=== PATIENT | male | born 1965 | race Caucasian/White ===

== ENCOUNTER 2019-07-15 16:30 | Outpatient (RCR) | payer OTHER, SELFPAY ==
--- NOTE | 2019-06-17 10:23 | HP.PTEVAL ---
Patient's Visit Information DEE RIDDLE is a 53 year old M referred to Physical Therapy by Out of Town Doctor with a diagnosis of B Knee Pain. Date of Evaluation: 06/17/19 Physical Therapist: Jaimie Fabian DPT - Visit Plan Frequency: 2x /Week Duration: 4 Weeks Plan: Bilateral TKR 05/20/19- Focus on LE functional mobility- plans to return to work at [employer] in 2 weeks. Progress as tolerated. - Subjective Findings: When he was a senior in college right knee blew out- reconstructed- and then the left was compensating. Bilateral Total Knees-05/20/19- by Dr. Michelle. Was in the hospital 2 days then sent him home- 2 story home with help as needed. Had home health for the past 4 weeks. Signed off Monday- Left 116 degrees Right 122 degrees. Pain at its worst is a 4-5/10- both knees are about the same- left feels a little more stiff and has a little more fluid. Agg: sitting for long periods of time. Best: 0/10 Eases: Tylenol. Pain is general throughout the whole knee- describes the pain as dull and achy. No radiating. Does have numbness/tingling to front of auguste. [place] the [place] 6 hours x2 days and not to bad- trying to build his endurance back. Sleep: Wakes up about 2:30- has been going from bed to reclyner. Work: [employer]- job duties include- pushing, pulling, walking, standing, lifting up to #50. Fully I proir to surgery- is currently using a cane at most times. PMHx: HTN Meds: Losartin, hydrchlorate. Tomorrow is first apt back to the MD. - Objective Stairs: With Cane: ascending w/ use AD & 1 HR, significant weight shift onto cane. Slight toe-in. Descending w/ poor eccentric control, turned side-ways to navigate steps. Without Cane: Reciprocal pattern w/ use of 1 HR, equal weight shift, descended w/ use of 1 HR & reciprocal pattern, lacked eccentric control in L LE. Gait: (no AD) slight toe-in, decreased wilma. HR: 25% lacking. TR: WFL. SLS: L - 6 seconds R - 12 seconds. ROM: Ankle WFL, Knee Flex: L 110 degrees, R 108 degrees, Knee Ext. WFL. Strength: Ankle: 5/5, Knee: extn: 4+/5, Flexion: 4/5, Hip: 4+/5 Core: fair. Flexibility:HS: moderate. Incision: No signs of infection - healing appropriately. Sensation: WNL to gross touch B - Goals Goal 1:: Pt. will be I w/ HEP & progression Goal Time Frame: 4-6 Weeks Goal 2:: Pt. will amb. >300 ft w/ normalized gait pattern no AD Goal Time Frame: 4-6 Weeks Goal 3:: Pt. will report 0/10 pain w/ ADL's Goal Time Frame: 4-6 Weeks Goal 4:: Patient will asc/desc 8 stairs recip with 1 HR and good technique. Goal Time Frame: 4-6 Weeks Goal 5:: Patient will demo 0-120 degrees in bilateral LE Goal Time Frame: 4-6 Weeks Goal 6:: Patient will demo 5/5 strength in LE Goal Time Frame: 4-6 Weeks - Rehabilitation Potential Physical Therapy Diagnosis: pt. presents w/ hypomobility, decreased knee ROM, antalgic gait, and pain which leads to pain w/ performance of ADL's. Rehabilitation Potential: Good - Anticipated Interventions Patient/Client Instruction: Educate patient on: Condition, Plan of Care For the Purpose of:: To decrease pain Therapeutic Exercise to Include: Strength training, Endurance training, Balance training, Body mechanics, Postural training, Flexibilty training, Gait and locomotor training, Passive ROM, Active ROM, Dynamic Lumbar Stabilization Cryotherapy (ice pack, ice massage): Yes Thermo therapy (hot pack): Yes Thank you for the opportunity to evaluate your patient. For Medicare and Medicare HMO plans, please review the plan of care and approve it. It will need to be FAXED BACK to us at [phone] for Medicare purposes. For Medicare only, by signing this I certify the plan of care. Please let me know if there are questions or concerns regarding this plan of care. Physician Signature: Date:
--- NOTE | 2019-07-16 15:56 | HP.PTDCSUM_ITS ---
HP - PT D/C Summary It has been my pleasure to treat DEE RIDDLE under orders from Jerrod Jim, for the diagnosis of Bilat TKR 05/20/19 for a total of 11 visit(s). Discharge Date: Please see the following information for a summary of their discharge status. - Subjective Subjective: Pt. reports he is therapy has gone well. Stood all monday night watching lemonade.uk with 0/10 pain. Still some stiffness at times. - Overall Improvement % Improvement: 90 - Objective Objective/Function: Stairs: Reciprocal w/ intermittent HR use. Gait: no deviations noted. HR: WFL. TR: WFL. SLS: B 15 seconds w/ no UE support. ROM: Ankle WFL, Knee Flex: L 110 degrees, R 108 degrees, Knee Ext. WFL. Strength: Ankle: 5/5, Knee: extn: 5/5, Flexion: 5/5, Hip: 5/5 Core: fair. Flexibility:HS: moderate. Incision: No signs of infection - healing appropriately. Sensation: WNL to gross touch B. [ End ] - Goals Goal 1:: Pt. will be I w/ HEP & progression Goal Progress: Goal Met Goal 2:: Pt. will amb. >300 ft w/ normalized gait pattern no AD Goal Progress: Goal Met Goal 3:: Pt. will report 0/10 pain w/ ADL's Goal Progress: Goal Met Goal 4:: Patient will asc/desc 8 stairs recip with 1 HR and good technique. Goal Progress: Goal Met Goal 5:: Patient will demo 0-120 degrees in bilateral LE Goal Progress: Progressing Goal 6:: Patient will demo 5/5 strength in LE Goal Progress: Goal Met - Plan Plan: 07/15/19 - Pt. D/C w/ HEP & instructed to return if questions/concerns. - D/C Information If there are questions or concerns regarding this patient's physical therapy, please feel free to call me at [phone]. Thank you for the referral of this patient. Sincerely, Jaimie Fabian DPT
== END 2019-07-15 19:00 | disposition home or self-care (01) ==
LOC: PT 16:30
PROVIDERS: Family Provider Family Medicine; PCP Family Medicine; Referring Provider Orthopaedic Surgery; Visit Provider Orthopaedic Surgery
DX: Z96.653 Presence of artificial knee joint, bilateral (principal)
CPT/HCPCS: 97014; 97032; 97110; 97161; 97162; 97164; G0283

== ENCOUNTER 2019-09-25 19:00 | Emergency (ER) | payer OTHER, SELFPAY ==
[2019-09-25 19:01] VITALS: BP 134/92; PULSE 58; RESP 16; TEMP 36.6; O2SAT 98; BMI 35.6
--- NOTE | 2019-09-25 19:19 | US_ITS ---
STUDY: VENOUS DOPPLER ULTRASOUND - LEFT LOWER EXTREMITY REASON FOR EXAM: Male, 54 years old. LT CALF SWELLING AND MEDIAL/ POSTERIOR CALF PAIN HAD KNEE SX IN MAY TECHNIQUE: Ultrasound evaluation of the deep vein system to include mendoza-scale imaging and compression was performed. Mendoza-scale imaging and Doppler sonographic evaluation, including duplex spectral analysis and qualitative color flow sonography, was performed. COMPARISON: None. FINDINGS: Common Femoral Vein: Normal compression, spontaneity and augmentation. Normal color Doppler. Common Femoral Vein/Greater Saphenous Junction: Normal compression, spontaneity and augmentation. Normal color Doppler. Deep Femoral Vein: Normal compression, spontaneity and augmentation. Normal color Doppler. Femoral Proximal: Normal compression, spontaneity and augmentation. Normal color Doppler. Femoral Middle: Normal compression, spontaneity and augmentation. Normal color Doppler. Femoral Distal: Normal compression, spontaneity and augmentation. Normal color Doppler. Popliteal Vein: Normal compression, spontaneity and augmentation. Normal color Doppler. Posterior Tibial Vein: Normal compression, spontaneity and augmentation. Normal color Doppler. Peroneal Vein: Normal compression, spontaneity and augmentation. Normal color Doppler. There is edema within the calf. Anechoic fluid collection of the medial upper calf measures 4.9 x 4.8 x 1.6 cm they could represent seroma or chronic hematoma. US/Venous Duplex Imag/Limited/Uni IMPRESSION: 1. No deep vein thrombosis. 2. Medial calf fluid collection suggesting chronic hematoma or seroma. Electronically Signed: Janak Valadez MD (Brooks) at 20:09 EST , Service support ,
--- NOTE | 2019-09-25 19:27 | ED.DCSUM_ITS ---
History of Present Illness Chief Complaint: Lower Extremity Injury Detail of Chief Complaint: Lower extremity pain and swelling, no history of trauma Informant: Patient Onset: Today, Yesterday Timing: Continuous Quality: Swelling left lower extremity and pain left calf Location: Previously documented Current Severity: Mild Maximum Severity: Moderate Worsened by: Nothing Relieved by: Nothing Associated Symptoms: No associated symptoms Narrative: This is a 54-year-old male with history of hypertension who presents with atraumatic left leg swelling and pain. Onset past 24 hours. There is no history of PE or DVT. There is no history of trauma. He is had no recent surgery, immobilization. He did have a total knee arthroplasty performed by Dr. Michelle in May. He denies chest pain or shortness of breath. He has no other complaints. Prior similar symptoms: No Recent Illness/Hospitalization: No - Past Medical History (1) History of hypertension Status: Acute Past Medical History - Allergies and Home Meds Allergies/Adverse Reactions: Allergies No Known Allergies Allergy (Verified 09/25/19 19:03) Primary Care Physician: Rocco Hardwick III, MD [Primary Care Provider] - Prior records reviewed: Yes Surgical History: - - Right and left total knee arthroplasty Lives: Spouse/ Significant Other Smoking Status: Current every day smoker Alcohol: Rare Drugs: None Review of Systems General: Denies: Chills, Fever, Malaise, Sweats Cardiovascular: Denies: Chest pain, Palpitations, Heart racing Respiratory: Denies: Dyspnea, Cough, Dyspnea on exertion Gastrointestinal: Denies: Abdominal pain, Nausea, Vomiting, Diarrhea, Melena, Hematochezia Musculoskeletal: Reports: Swelling, Extremity Pain. Denies: Myalgias, Arthralgias, Neck pain, Back pain Hematologic: Denies: Easy bruising, Easy bleeding Physical Exam Vital Signs/Narrative: Vital Signs Temp Pulse Resp BP Pulse Ox 09/25/19 19:01 97.9 F 58 L 16 134/92 H 98 Inital Vital Signs reviewed: Yes General: Well nourished, Well developed, No Acute Distress Head: Normocephalic, Atraumatic Eyes: Perrl, EOMI. Negative for: Pale conjunctiva, Scleral icterus Neck: Supple, Nontender, No lymphadenopathy, No JVD Cardiovascular: Regular rate, Regular rhythm, No murmurs, Normal S1, Normal S2 Respiratory: No distress, CTA bilaterally, Chest nontender Abdomen: Soft, Nontender, Nondistended, Normal bowel sounds, No masses Back: Nontender, Normal Inspection Extremities: No edema, - - There is significant swelling the left lower extremity with pain to palpation in the distribution of the deep venous system and distended like veins.. Negative for: Nontender Skin: Normal color, No rash Neurological: Alert, Oriented x3, Cranial nerves II-XII grossly intact, Normal Strength, Normal Sensation Psychological: Normal affect, Normal Mood Diagnostic/Tx/Re-eval Ultrasound reveals a fluid collection with no evidence of DVT. Awaiting formal read by radiologist. Impressions Venous Duplex 09/25/19 19:19 IMPRESSION: 1. No deep vein thrombosis. 2. Medial calf fluid collection suggesting chronic hematoma or seroma. Electronically Signed: Janak Valadez MD (Brooks) at 20:09 EST , Service support , Laboratory Results 09/25/19 19:30 Sodium 140 Potassium 3.7 Chloride 106 Carbon Dioxide 28.0 Anion Gap 6 BUN 11 Creatinine 1.03 Estim Creat Clear Calc 92.08 Est GFR (MDRD) Af Amer 98 Est GFR (MDRD) Non-Af 81 BUN/Creatinine Ratio 10.7 Glucose 94 Calcium 8.6 - Medical Decision Making Patient is moderate to high risk based on Wells criteria for DVT. Venous duplex study was obtained to assess for DVT. Other causes could be muscle tear, subcutaneous hematoma. ED Disposition - Plan for ED Patient: Disposition: Home or Assisted Living Diagnosis: Hematoma of left lower extremity Instructions: Hematoma Referrals: Rocco Hardwick III, MD [Primary Care Provider] - As Needed Additional Instructions: Elevate your leg as much as possible. Apply ice to anterior left leg 4-6 times a day for 20 to 30 minutes per ap plication.
[2019-09-25 19:55] LABS: Anion Gap 6 (5-15); BUN 11 mg/dL (7-18); BUN/Creat Ratio 10.7 RATIO (10-20); Calcium,Total 8.6 mg/dL (8.5-10.1); Chloride 106 mmol/L (98-107); Creatinine, Serum 1.03 mg/dL (0.70-1.30); EST Glomerular Filtration Rate 81 mL/min (>60); Est Glom Filt Rate - Afr Amer 98 mL/min (>60); Estimated Creatinine Clearance 92.08 ml/min; Glucose 94 mg/dL (74-106); Potassium 3.7 mmol/L (3.5-5.1); Sodium Level 140 mmol/L (136-145)
== END 2019-09-25 20:24 | disposition home or self-care (01) ==
PROVIDERS: Emergency Provider Emergency Medicine; Family Provider Family Medicine; PCP Family Medicine
DX: S80.12XA Contusion of left lower leg, initial encounter (principal); X58.XXXA Exposure to other specified factors, initial encounter; Y93.9 Activity, unspecified; Y92.9 Unspecified place or not applicable; I10 Essential (primary) hypertension; Z79.899 Other long term (current) drug therapy; F17.200 Nicotine dependence, unspecified, uncomplicated
CPT/HCPCS: 36415; 80048; 93971; 99282

== ENCOUNTER 2021-05-11 12:24 | Emergency (ER) | payer OTHER, SELFPAY ==
[2021-05-11 12:25] VITALS: BP 159/99; PULSE 59; RESP 16; TEMP 36.6; O2SAT 99; BMI 36.3
--- NOTE | 2021-05-11 12:33 | EKG12_ITS ---
Test Reason : CP Blood Pressure : / mmHG Vent. Rate : 047 BPM Atrial Rate : 047 BPM P-R Int : 164 ms QRS Dur : 112 ms QT Int : 446 ms P-R-T Axes : 054 -24 -06 degrees QTc Int : 394 ms Sinus bradycardia Otherwise normal ECG Confirmed by SHYAM REID, RAMON ([id number]), sports editor MAGED HAINES ([id number]) on 05/17/2021 9:26:54 AM Referred By: Confirmed By:RAMON HOWE MD
--- NOTE | 2021-05-11 13:52 | RAD_ITS ---
STUDY: X-RAY CHEST REASON FOR EXAM: Male, 55 years old. right sided cp TECHNIQUE: PA and lateral views of the chest. COMPARISON: None. FINDINGS: The lungs are clear and expanded. There is no demonstrated pleural abnormality. Normal size heart. Normal mediastinum and vicente. Normal visualized pulmonary arteries. Normal visualized aortic arch and descending thoracic aorta. Normal visualized thoracic spine. Normal visualized ribs, clavicles, and shoulders. There is no demonstrated abnormality of the visualized soft tissue structures of the upper abdomen. RAD/Chest PA and Lateral IMPRESSION: Normal x-ray examination of the chest. Electronically Signed: Riccardo Mcclelland MD at 14:44 EDT Tel , Service support ,
--- NOTE | 2021-05-11 13:53 | ED.VIS.CHEST ---
HPI History of Present Illness Chief Complaint: Chest Other Detail of Chief Complaint: Right-sided chest pain Informant: patient Onset/Context/Timing Onset: Days Activity at onset: gradual Timing: Intermittent Quality: Positive for Aching and Stabbing Location: Right Chest Current Severity: Mild Maximum Severity: Mild Worsened By: Movement of Arm and Movement of Torso; Not Worsened By Exertion, Eating, Palpation, Breathing and Coughing Relieved By: Remaining Still Associated Symptoms: Negative for Nausea, Vomiting, Diaphoresis, Dyspnea, Cough, Fever, Lightheadedness, Acid Reflux and Palpitations Narrative Prior Similar Symptoms: Yes Recent Illness/Hospitalization: No CVD Risk Factors: Positive for Hypertension; Negative for Diabetes, Hypercholesterolemia, Family History 1' </=55 and Smoking PE Risk Factors: Positive for Prior DVT or PE; Negative for Recent Travel/Surgery, Recent Immobilization, Cancer and OCP + Smoking + >/=35 TAD Risk Factors: Negative for Marfan's Syndrome PFSH PFSH Home Medications Omeprazole [Prilosec] 40 mg PO DAILY 10/07/13 [History Last Taken Unknown] atenolol 50 mg PO DAILY 10/07/13 [History Last Taken Unknown] hydrochlorothiazide 25 mg PO DAILY 10/07/13 [History Last Taken Unknown] amlodipine 5 mg PO DAILY 09/25/19 [History Last Taken Unknown] Allergy/AdvReac Type Severity Reaction Status Date / Time No Known Allergies Allergy Verified 05/11/21 12:28 Social History Smoking Status: Current every day smoker ROS ROS ED ROS Narrative Denies recent fever, chills, cough. No hemoptysis. No history of PE. Review of Systems ROS Unobtainable: Denies due to encephalopathy Constitutional Constitutional ED: Denies chills or fever(s) Eyes Eyes: Denies change in vision ENT ENT ED: Denies ear pain or sore throat Cardiovascular Cardiovascular: Reports chest pain; Denies palpitations or racing heartbeat Respiratory/Chest Respiratory/Chest: Denies cough, dyspnea or sputum Gastrointestinal Gastrointestinal: Denies abdominal pain, diarrhea, nausea or vomiting Genitourinary Genitourinary ED: Denies dysuria or hematuria Musculoskeletal Musculoskeletal: Denies myalgias Integumentary Denies abscess or rash Neurologic Neurologic: Denies headache(s) Psychiatric Psychiatric: Denies depression Endocrine Endocrinology: Denies polyuria Hematologic/Lymphatic Hematologic/Lymphatic: Denies easy bruising Allergic/Immunologic Allergic/Immunologic ED: Denies urticaria EXAM Physical Exam Narrative Exam Narrative: Middle-age male no acute distress vital signs stable afebrile. Pulse ox 90% on room air no signs hypoxia. Pulse rates 59. HEENT exam normal. Neck nontender no lymphadenopathy. Lungs clear to auscultation bilaterally. Heart regular rate and rhythm no murmur. Rate about 60. Chest wall minimal reproducible tenderness on the right none on the left. No ecchymosis or bruising. No subcu air crepitance. Abdomen soft nontender. Patient moving all 4 extremities. Const Vital Signs: 05/11/21 12:25 Temperature 97.8 F Temperature Source Temporal Pulse Rate 59 L Respiratory Rate 16 Blood Pressure 159/99 H Blood Pressure Mean 119 Pulse Ox 99 Oxygen Delivery Method Room Air Positive well nourished and well developed; Negative for obese or unkempt General Appearance ED: well developed and NAD; Negative for unkempt or pallor Nutritional Appearance: Negative for obese HEENT normocephalic and atraumatic Eyes PERRL and EOMs intact bilaterally Neck no lymphadenopathy, supple and no JVD General: Negative for tenderness Chest Wall inspection of chest normal Chest Narrative: Mild right-sided tenderness. Chest: tenderness Resp normal respiratory effort and clear to auscultation bilaterally Effort and Inspection: Negative for respiratory distress Auscultation: Negative for rales, rhonchi or wheezes Cardio regular rate, regular rhythm, S1 normal heart sound, S2 normal heart sound and no murmurs Rate: Negative for tachycardic GI normal to inspection, nondistended, normoactive bowel sounds, soft to palpation, non-tender, non-distended and no masses Back/Spine no CVA tenderness Extremity normal to inspection Extremity Narrative: Nontender without edema. Equal symmetrical radial pulses. General Extremety ED: Negative for edema, pulses abnormal or tenderness General Extremity: Negative for edema or pulses abnormal Neuro oriented x3 and CN's II-XII intact bilaterally Sensorium / Orientation: awake, alert, oriented to person, oriented to place and oriented to time Motor Exam: strength 5/5 throughout Psych mental status grossly normal Appearance: Negative for unkempt Skin no rashes or lesions noted and no wounds General Skin Exam: Negative for jaundice or pallor Rashes: No rashes noted Heart Score History: Slightly/Non-Suspicious ECG: Normal Age: >45 - <65 years Risk Factors: 1 or 2 Risk Factors Score: 2 MDM MDM MDM Narrative Medical decision making narrative: 55-year-old male with recurrent chest pain worse with movement. Denies nausea or shortness of breath. Not associated with exertion. He has had this intermittently the last 4 to 5 years. Clinically does not sound cardiac. He has an unremarkable EKG. Chest x-ray being obtained. He has no recent risk factors for DVT or PE. No travel, surgery or immobilization. Not specifically pleuritic. He is not short of breath. He has no leg pain or swelling. No hemoptysis. Repeat exam patient is doing well at 240 no be discharged to home. Radiography Chest X-Ray - ED: 2 View, Read by ED Physician, Heart, Lungs, Mediastinum, Bony Structures, No Acute Disease and Chronic Changes Diagnostic Testing: Chest x-ray AP and lateral views are unremarkable. No acute abnormality. Normal cardiac silhouette and mediastinum and lung kaufman. Rhythm Strip Rhythm Strip: Sinus Rhythm Rate: 47 Ectopy: None EKG Initial EKG: Attestation: I personally reviewed and interpreted this EKG as follows: Interpretation: Sinus Rhythm, No Acute Injury Pattern and Sinus Bradycardia Comments: Sinus bradycardia rate of 47 no acute signs of SC nor ischemia. No prior EKG available for comparison. Prior EKG tracings: not available for review Discharge Plan Triage Chief Complaint: Chest Other ED Provider: Cl Ramírez Dx/Rx/DC Orders Clinical Impression: Acute chest wall pain Instructions: ED Chest Pain, Noncardiac Prescriptions: No Action atenolol 50 MG tablet 50 mg PO DAILY RF: 0 hydrochlorothiazide 25 MG tablet 25 mg PO DAILY RF: 0 Omeprazole [Prilosec] 40 MG capsule 40 mg PO DAILY RF: 0 amlodipine 5 MG tablet 5 mg PO DAILY RF: 0 Primary Care Provider: Rocco Hardwick III Referrals: Rocco Hardwick III, MD [Primary Care Provider] - 10-14 Days if not better Activity Restrictions/Additional Instructions: Motrin for pain and inflammation. They should progressively improve. If not follow-up with your doctor. Disposition Disposition: Home, Self Care
[2021-05-11 14:52] VITALS: RESP 16
== END 2021-05-11 14:54 | disposition home or self-care (01) ==
PROVIDERS: Emergency Provider Emergency Medicine; PCP Family Medicine
DX: R07.89 Other chest pain (principal); F17.200 Nicotine dependence, unspecified, uncomplicated; Z79.899 Other long term (current) drug therapy
CPT/HCPCS: 71046; 93005; 99282